=== PATIENT | female | born 1995 | race Caucasian/White ===

== ENCOUNTER 2017-09-07 19:30 | Observation (INO) | payer OTHER ==
--- NOTE | 2017-09-07 21:29 | ER Document Report ---
ED GI/ - General Chief Complaint: Abdominal Pain Stated Complaint: ABDOMINAL PAIN Time Seen by Provider: 09/07/17 21:29 Notes: The patient is a 22-year-old female, no past medical history, presents with 1 day of worsening right lower quadrant abdominal pain, nausea and vomiting. The pain is worse with movement and palpation. Her last menstrual period was 3 weeks ago and she is beginning to spot. The pain was initially intermittent, but is now constant. She denies fevers, dysuria, vaginal discharge, flank pain , hematemesis, diarrhea, constipation, rash, chest pain, shortness of breath or . TRAVEL OUTSIDE OF THE [place] IN LAST 30 DAYS: No Past Medical History - General Information source: Patient - Social History Smoking Status: Never Smoker Chew tobacco use (# tins/day): No Frequency of alcohol use: Occasional Drug Abuse: None Family History: Reviewed & Not Pertinent Patient has suicidal ideation: No Patient has homicidal ideation: No Pulmonary Medical History: Reports: Hx Bronchitis Neurological Medical History: Reports: Hx Migraine Renal/ Medical History: Denies: Hx Peritoneal Dialysis Surgical Hx: Negative Review of Systems - Review of Systems Notes: REVIEW OF SYSTEMS: CONSTITUTIONAL: -fevers, -chills EENT: -eye pain, -difficulty swallowing, -nasal congestion CARDIOVASCULAR:-chest pain, -syncope. RESPIRATORY: -cough, -SOB GASTROINTESTINAL: +RLQ abdominal pain, +nausea, +vomiting, -diarrhea GENITOURINARY: -dysuria, -hematuria MUSCULOSKELETAL: -back pain, -neck pain SKIN: -rash or skin lesions. HEMATOLOGIC: -easy bruising or bleeding. LYMPHATIC: -swollen, enlarged glands. NEUROLOGICAL: -altered mental status or loss of consciousness, -headache, - neurologic symptoms PSYCHIATRIC: -anxiety, -depression. ALL OTHER SYSTEMS REVIEWED AND NEGATIVE. Physical Exam - Vital signs Vitals: Temp Pulse Resp BP Pulse Ox 98.4 F 92 18 137/86 H 100 09/07/17 20:19 09/07/17 20:19 09/07/17 20:19 09/07/17 20:19 09/07/17 20:19 - Notes Notes: PHYSICAL EXAMINATION: GENERAL: Well-appearing, well-nourished and in no acute distress. HEAD: Atraumatic, normocephalic. EYES: Pupils equal round and reactive to light, extraocular movements intact, sclera anicteric, conjunctiva are normal. ENT: nares patent, oropharynx clear without exudates. Moist mucous membranes. NECK: Normal range of motion, supple without lymphadenopathy LUNGS: Breath sounds clear to auscultation bilaterally and equal. No wheezes rales or rhonchi. HEART: Regular rate and rhythm without murmurs ABDOMEN: Soft, moderate RLQ tenderness, normoactive bowel sounds. +guarding and rebound. No masses appreciated. EXTREMITIES: Normal range of motion, no pitting or edema. No cyanosis. NEUROLOGICAL: Cranial nerves grossly intact. Normal speech, normal gait. Normal sensory and motor exams. PSYCH: Normal mood, normal affect. SKIN: Warm, Dry, normal turgor, no rashes or lesions noted. Course - Re-evaluation Re-evalutation: 09/07/17 22:52 Pt with acute appendicitis on CAT scan. Spoke to Dr. Mccracken, surgicalist, and he recommends IV antibiotics, IV fluids and admission to surgical floor. Pt kept NPO. - Vital Signs Vital signs: Temp Pulse Resp BP Pulse Ox 98.4 F 92 18 137/86 H 100 09/07/17 20:19 09/07/17 20:19 09/07/17 20:19 09/07/17 20:19 09/07/17 20:19 - Laboratory Result Diagrams: 09/07/17 20:40 09/07/17 20:40 Laboratory results interpreted by me: 09/07/17 09/07/17 20:40 20:50 WBC 17.5 H Absolute Neutrophils 12.9 H Absolute Monocytes 2.1 H Urine Blood MODERATE H - Diagnostic Test Radiology reviewed: Image reviewed, Reports reviewed Radiology results interpreted by me: CT A/P: Findings consistent with acute appendicitis. Discharge - Discharge Clinical Impression: Acute appendicitis Qualifiers: Acute appendicitis type: with localized peritonitis Qualified Code(s): K35.3 - Acute appendicitis with localized peritonitis Condition: Stable Disposition: ADMITTED INPATIENT Admitting Provider: Hialyist Eloisa Mccracken Unit Admitted: Surgical Floor
[2017-09-07 21:30] LABS: ABSOLUTE BASOPHILS # (AUTO) 0.1 10^3/uL (0.0-0.2); ABSOLUTE EOSINOPHILS # (AUTO) 0.1 10^3/uL (0.0-0.6); ABSOLUTE LYMPHOCYTES (AUTO) 2.4 10^3/uL (0.5-4.7); ABSOLUTE MONOCYTES (AUTO) 2.1 10^3/uL (0.1-1.4); ABSOLUTE NEUT (AUTO) 12.9 10^3/uL (1.7-8.2); BASOPHILS % (AUTO) 0.4 % (0-2); EOSINOPHILS % (AUTO) 0.4 % (0-6); HEMATOCRIT 38.3 % (36.0-47.0); HEMOGLOBIN 13.3 g/dL (12.0-15.5); HGB HCT DIFFERENCE 1.6; LYMPHOCYTES % (AUTO) 13.4 % (13-45); MEAN CORPUSCULAR HEMOGLOBIN 29.6 pg (27.0-33.4); MEAN CORPUSCULAR HGB CONC 34.6 g/dL (32.0-36.0); MEAN CORPUSCULAR VOLUME 86 fl (80-97); MONOCYTES % (AUTO) 11.8 % (3-13); RED BLOOD COUNT 4.48 10^6/uL (3.72-5.28); RED CELL DISTRIBUTION WIDTH 12.8 % (11.5-14.0); WHITE BLOOD COUNT 17.5 10^3/uL (4.0-10.5)
[2017-09-07 21:33] LABS: APPEARANCE,URINE CLEAR; BILIRUBIN,URINE NEGATIVE (NEGATIVE); GLUCOSE, URINE NEGATIVE (NEGATIVE); KETONES,URINE NEGATIVE (NEGATIVE); LEUKOCYTE ESTERASE,URINE NEGATIVE (NEGATIVE); NITRITE,URINE NEGATIVE (NEGATIVE); PROTEIN,URINE NEGATIVE (NEGATIVE); UROBILINOGEN,URINE NEGATIVE mg/dL (<2.0)
[2017-09-07] MEDS ORDERED: ONDANSETRON HCL INJ/PF 4 MG/2 ML SDV IV ONE (21:35)
[2017-09-07] MEDS ORDERED: MORPHINE SULFATE 10 MG/ML INJ IV ONE ×2 (21:35→22:57)
[2017-09-07] MEDS ORDERED: NORMAL SALINE 1000 ML 1,000 ML IV ONE ×2 (21:35→22:53)
[2017-09-07 21:38] LABS: ALANINE AMINOTRANSFERASE 34 U/L (9-52); ALBUMIN 4.4 g/dL (3.5-5.0); ALKALINE PHOSPHATASE 77 U/L (38-126); ANION GAP 13 (5-19); ASPARTATE AMINO TRANSFERASE 30 U/L (14-36); BILIRUBIN,DIRECT 0.3 mg/dL (0.0-0.4); BILIRUBIN,TOTAL 0.6 mg/dL (0.2-1.3); BLOOD UREA NITROGEN 11 mg/dL (7-20); CALCIUM 9.6 mg/dL (8.4-10.2); CARBON DIOXIDE 23 mmol/L (22-30); CHLORIDE 105 mmol/L (98-107); CREATININE RESULT 0.96 mg/dL (0.52-1.25); GLUCOSE 83 mg/dL (75-110); LIPASE 86.5 U/L (23-300); POTASSIUM 4.4 mmol/L (3.6-5.0); SODIUM 141.1 mmol/L (137-145)
--- NOTE | 2017-09-07 22:34 | RADIOLOGY REPORT (SQ) ---
EXAM DESCRIPTION: CT ABD/PELVIS WITH IV ONLY COMPLETED DATE/TIME: 09/07/2017 10:10 pm REASON FOR STUDY: RLQ pain COMPARISON: None. TECHNIQUE: CT scan of the abdomen and pelvis performed using helical scanning technique with dynamic intravenous contrast injection. No oral contrast. Images reviewed with lung, soft tissue, and bone windows. Reconstructed coronal and sagittal MPR images reviewed. Delayed images for evaluation of the urinary system also acquired. All images stored on PACS. All CT scanners at this facility use dose modulation, iterative reconstruction, and/or weight based d osing when appropriate to reduce radiation dose to as low as reasonably achievable (ALARA). [facility]: Dose Right [facility]: CareDose [facility]: Dose Right [facility]: Teradose 4D [facility]: Fanwards CONTRAST TYPE AND DOSE: contrast/concentration: Isovue 370.00 mg/ml; Total Contrast Delivered: 86.0 ml; Total Saline Delivered: 44.0 ml RENAL FUNCTION: None required. The patient is less than 50 years old. RADIATION DOSE: Up-to-date CT equipment and radiation dose reduction techniques were employed. CTDIv ol: 10.1 mGy. DLP: 1135 mGy-cm.. LIMITATIONS: None. FINDINGS: LOWER CHEST: No significant findings. No nodules or infiltrates. LIVER: Normal size. No masses. No dilated ducts. SPLEEN: Normal size. No focal lesions. PANCREAS: No masses. No significant calcifications. No adjacent inflammation or peripancreatic fluid collections. Pancreatic duct not dilated. GALLBLADDER: No identified stones by CT criteria. No inflammatory changes to suggest cholecystitis. ADRENAL GLANDS: No significant masses or asymmetry. RIGHT KIDNEY AND URETER: No solid masses. No significant calcifications. No hydronephrosis or hyd roureter. LEFT KIDNEY AND URETER: No solid masses. No significant calcifications. No hydronephrosis or hydr oureter. AORTA AND VESSELS: No aneurysm. No dissection. Renal arteries, SMA, celiac without stenosis. RETROPERITONEUM: No retroperitoneal adenopathy, hemorrhage or masses. BOWEL AND PERITONEAL CAVITY: No masses or inflammatory changes. No free fluid or peritoneal masses. APPENDIX: Mildly dilated with moderate adjacent inflammatory changes in the para appendiceal fat. No free air or fluid collection. PELVIS: No mass. No free fluid. Normal bladder. ABDOMINAL WALL: No masses. No hernias. BONES: No significant or acute findings. OTHER: No other significant finding. IMPRESSION: Findings consistent with acute appendicitis. TECHNICAL DOCUMENTATION: JOB ID: [id number] Quality ID # [id number]: Final reports with documentation of one or more dose reduction techniques (e.g., Au tomated exposure control, adjustment of the mA and/or kV according to patient size, use of iterative reconstruction technique) 2010 [employer]- All Rights Reserved
[2017-09-07] MEDS ORDERED: AMPICILLIN SOD/SULBACTAM 3 GM VIAL IV ONE (22:54)
[2017-09-08] MEDS ORDERED: NORMAL SALINE 1000 ML 1,000 ML IV PRN (01:55)
[2017-09-08] MEDS ORDERED: PIPERACILLIN/TAZOBACTAM 3.375 GM VIAL IV PRN (01:56)
[2017-09-08] MEDS ORDERED: ONDANSETRON HCL INJ/PF 4 MG/2 ML SDV IV PRN (01:57)
[2017-09-08] MEDS ORDERED: PIPERACILLIN/TAZOBACTAM 3.375 GM VIAL IV ONE (04:15)
[2017-09-08] MEDS: PIPERACILLIN SODIUM/TAZOBACTAM 3.375 GM in NORMAL SALINE 100 ML IV SCH ×4 (04:28→20:33)
[2017-09-08] MEDS: MORPHINE SULFATE 10 MG/ML INJ IV PRN ×3 (04:28→23:57)
--- NOTE | 2017-09-08 07:12 | HISTORY AND PHYSICAL E ---
History and Physical NAME: RUSSEL SNOW : 1995 AGE: 22Y ADMITTED: 09/08/2017 ROOM: 209 CHIEF COMPLAINT: Abdominal pains. HISTORY OF PRESENT ILLNESS: This is a 22-year-old female who has been complaining of right lower quadrant pain started at 2:30 a.m. of 09/07/17. Pain associated with nausea. Patient went to the emergency room where a CAT scan of the abdomen revealed acute appendicitis. Patient was then admitted, started on IV antibiotics, and kept n.p.o. PAST HISTORY: Unremarkable. SOCIAL HISTORY: Denies smoking. Drinks socially. Denies recreational drug use. PAST MEDICAL HISTORY: 1. Pulmonary medical history: Bronchitis. 2. Neurologic history: Reports history of migraine. PAST SURGICAL HISTORY: No previous surgery in the past. ALLERGIES: None known. REVIEW OF SYSTEMS: CONSTITUTIONAL: Denies any fever or chills. EARS, EYES, NOSE, THROAT: No visual or hearing problems or nasal congestion. CARDIOVASCULAR: Denies chest pains. RESPIRATORY: Denies shortness of breath or cough. GASTROINTESTINAL: Admits to having right lower quadrant abdominal pains, nausea, and vomiting. No diarrhea. GENITOURINARY: No dysuria. MUSCULOSKELETAL: Denies back pains or neck pains. SKIN: No rashes or skin lesions. HEMATOLOGIC: No easy bruisability or enlarged glands. NEUROLOGIC: No altered mental status or loss of consciousness. PSYCHIATRIC: No history of depression or anxiety. All other systems reviewed are negative. PHYSICAL EXAMINATION: VITAL SIGNS: Temperature is 98.4 degrees Fahrenheit, pulse rate 92 per minute, respiratory rate 18 per minute, BP 137/86, and pulse ox of 100% on room air. GENERAL: Patient is well-developed, well-nourished 22-year-old female complaining of right lower quadrant pains. HEENT: Neck is supple. No thyromegaly. LUNGS: Clear. HEART: Regular sinus rhythm. ABDOMEN: Soft with tenderness in the right lower quadrant with rebound. EXTREMITIES: No edema. NEUROLOGIC: The patient is alert and oriented x4. Normal speech and normal gait. PSYCHIATRIC: Normal mood and affect. SKIN: Warm, dry, and no rash. LABORATORY DATA: White count is noted to be elevated at 17.5, hemoglobin is normal at 13.3. BMP is normal with normal BUN and creatinine. IMAGING: A CAT scan of the abdomen was done and reviewed and noted to have acute appendicitis. IMPRESSION: Acute appendicitis. PLAN: 1. Patient keep n.p.o. 2. Start IV antibiotics with Zosyn. 3. Hydrate with normal saline at 150 mL/hour. 4. Patient for laparoscopic appendectomy by Dr. Gordillo, the incoming surgeon. DICTATING PHYSICIAN: ARMIN SYKES M.D. [id number] PHY#: [id number] ID: [id number] JOB#: [id number] ACCT: [id number] cc:Frannie ABARCA MD
[2017-09-08] MEDS ORDERED: BUPIVACAINE HCL 0.25 % INJ/PF (2.5 MG/1 ML) 30 ML VIAL ONE (08:21)
[2017-09-08] MEDS ORDERED: FENTANYL CITRATE INJ/PF 100 MCG/2 ML AMPUL ONE (08:41)
[2017-09-08] MEDS ORDERED: MIDAZOLAM 2 MG/2 ML INJ ONE (08:41)
[2017-09-08] MEDS ORDERED: EPHEDRINE SULFATE INJ 50 MG/1 ML AMPULE ONE (08:41)
[2017-09-08] MEDS ORDERED: HYDROMORPHONE HCL INJ/PF 2 MG/ML AMPULE ONE (08:42)
[2017-09-08] MEDS ORDERED: IBUPROFEN INJ 800 MG/8 ML VIAL IV ONE (08:42)
[2017-09-08] MEDS ORDERED: PROPOFOL INJ 200 MG/20 ML VIAL IV ONE (08:42)
--- NOTE | 2017-09-08 09:09 | PDOC PROGRESS REPORT ---
Subjective Progress Note for:: 09/08/17 Subjective:: Complain of persistent right lower quadrant abdominal pain. Physical Exam Vital Signs: Temp Pulse Resp BP Pulse Ox 98.5 F 84 20 111/61 100 09/08/17 08:38 09/08/17 08:38 09/08/17 08:38 09/08/17 07:50 09/08/17 08:38 General appearance: PRESENT: no acute distress, cooperative Respiratory exam: PRESENT: clear to auscultation amanda Cardiovascular exam: PRESENT: RRR GI/Abdominal exam: PRESENT: other - Soft, nondistended, right lower quadrant abdominal tenderness with guarding. Results Impressions: Abdomen/Pelvis CT 09/07/17 21:35 IMPRESSION: Findings consistent with acute appendicitis. Assessment & Plan - Diagnosis (1) Acute appendicitis Qualifiers: Acute appendicitis type: with localized peritonitis Qualified Code(s): K35.3 - Acute appendicitis with localized peritonitis Is this a current diagnosis for this admission?: Yes Plan: Likely appendicitis. Will plan laparoscopic appendectomy possible open appendectomy. I have discussed with the patient the risk and benefits of the procedure including risk of mistaken diagnosis, infection, bleeding, adjacent structure injury, stump leak. patient understands and agrees to proceed. She understands that if the appendix appears normal I will still most likely remove the appendix and do a exploratory laparoscopy.
[2017-09-08] MEDS ORDERED: FENTANYL CITRATE INJ/PF 100 MCG/2 ML AMPUL IV PRN ×3 (09:22)
[2017-09-08] MEDS ORDERED: MEPERIDINE HCL/PF INJ 25 MG/1 ML DISP.SYRIN IV PRN (09:22)
[2017-09-08] MEDS ORDERED: PROMETHAZINE HCL INJ 25 MG/1 ML VIAL IV PRN (09:22)
[2017-09-08] MEDS ORDERED: DIPHENHYDRAMINE HCL 50 MG/ML VIAL IV PRN (09:22)
--- NOTE | 2017-09-08 10:16 | Operative Report ---
Operative Report DATE OF SURGERY: 09/08/17 PREOPERATIVE DIAGNOSIS: Appendicitis POSTOPERATIVE DIAGNOSIS: Appendicitis OPERATION: Laparoscopic appendectomy, exploratory laparoscopy. SURGEON: HECTOR JOHNSON ANESTHESIA: GA TISSUE REMOVED OR ALTERED: Appendix, appendix swabbed for Gram stain and culture COMPLICATIONS: None ESTIMATED BLOOD LOSS: Minimal INTRAOPERATIVE FINDINGS: Slightly turbid fluid around a distended appendix but no evidence of perforation. Normal-appearing small bowel, normal-appearing right colon, normal-appearing sigmoid colon, normal-appearing liver, normal- appearing gallbladder, normal-appearing bilateral ovaries, normal-appearing uterus. PROCEDURE: Informed consent was obtained. Patient was brought to the operating room placed on the operating room table in the supine position. After satisfactory induction of general anesthesia patient's abdomen was prepped and draped in usual sterile fashion. A supraumbilical midline incision was made dissection carried down through the fascia and the peritoneal cavity was entered. Davis trocar was inserted and pneumoperitoneum produced with good patient toleration. A 5 mm trocar was placed in the right lateral abdomen lateral to the rectus above the level of the umbilicus. Another 5 mm trocar was placed in the left lateral abdomen lateral to the rectus below the level of the umbilicus. Patient was placed in a Trendelenburg position with the right side up. There was slightly turbid fluid along the right paracolic gutter with a distended slightly inflamed appendix but no evidence of perforation. An exploratory laparoscopy was performed since the diagnosis appendicitis was not 100% certain although likely based on the appearance. The gallbladder and the liver appeared normal. Bilateral ovaries were visualized and they appeared normal. The uterus appeared normal. The right colon and the sigmoid colon appeared normal. No evidence of hernia was seen. The small bowel was run from the ligament of Treitz proximally and no abnormalities were noted. A plane was created between the mesoappendix and the appendix at the base of the appendix. Using a Endo JOANNE stapling device the appendix was taken flush with the cecum. The stump closure appeared secure. The mesoappendix was taken using a vascular load of the Endo JOANNE stapling device. Hemostasis appeared good. The operative field was lightly irrigated and irrigant aspirated out. The appendix was placed in an Endobag and removed through the Davis trocar site fascial defect. All trochars were removed under the direct vision of the laparoscope to ensure hemostasis. The Davis trocar site fascial defect was closed with interrupted Vicryl sutures. All skin incisions were closed with subcuticular interrupted Monocryl sutures. Marcaine was injected at the operative sites. Patient tolerated procedure well with no apparent complications and was taken to the recovery area in stable condition.
[2017-09-08] MEDS ORDERED: ACETAMINOPHEN 100 ML IV ONE (10:59)
[2017-09-08] MEDS: DEXTROSE 5%-LACTATED RINGERS 1,000 ML IV PRN ×2 (18:13→20:34)
--- NOTE | 2017-09-08 21:20 | PDOC PROGRESS REPORT ---
Subjective Progress Note for:: 09/08/17 Subjective:: Feels much better. Preoperative pain has markedly improved. Physical Exam Vital Signs: Temp Pulse Resp BP Pulse Ox 97.7 F 95 16 128/75 H 98 09/08/17 15:23 09/08/17 15:23 09/08/17 15:23 09/08/17 15:23 09/08/17 15:23 Intake & Output 09/07/17 09/08/17 09/09/17 06:59 06:59 06:59 Intake Total 0 Output Total 1020 Balance 1030 General appearance: PRESENT: no acute distress, cooperative Respiratory exam: PRESENT: clear to auscultation amanda Cardiovascular exam: PRESENT: RRR GI/Abdominal exam: PRESENT: other - Soft, nondistended, right lower quadrant abdominal tenderness has resolved. Results Impressions: Abdomen/Pelvis CT 09/07/17 21:35 IMPRESSION: Findings consistent with acute appendicitis. Assessment & Plan - Diagnosis (1) Acute appendicitis Qualifiers: Acute appendicitis type: with localized peritonitis Qualified Code(s): K35.3 - Acute appendicitis with localized peritonitis Is this a current diagnosis for this admission?: Yes Plan: Status post laparoscopic appendectomy. Patient doing very well. Will likely discharge patient home tomorrow.
[2017-09-09] MEDS: PIPERACILLIN SODIUM/TAZOBACTAM 3.375 GM in NORMAL SALINE 100 ML IV SCH ×2 (02:58→09:03)
[2017-09-09] MEDS ORDERED: ONDANSETRON HCL INJ/PF 4 MG/2 ML SDV ONE (07:48)
[2017-09-09] MEDS ORDERED: DEXAMETHASONE SOD PHOSPHATE INJ 4 MG/1 ML VIAL ONE (07:48)
[2017-09-09] MEDS ORDERED: NEOSTIGMINE METHYLSULFATE 10 MG/10 ML VIAL ONE (07:48)
[2017-09-09] MEDS ORDERED: GLYCOPYRROLATE INJ 0.4 MG/2 ML VIAL ONE (07:48)
[2017-09-09] MEDS ORDERED: LIDOCAINE 2% INJ-PF (20 MG/ML) 10 ML AMPUL ONE (07:48)
--- NOTE | 2017-09-09 09:43 | PDOC DISCHARGE SUMMARY ---
Discharge Summary (SDC) - Discharge Final Diagnosis: Acute appendicitis Date of Surgery: 09/08/17 Discharge Date: 09/09/17 Condition: Good Treatment or Instructions: Activity and follow up instructions given. Referrals: HECTOR JOHNSON MD [ACTIVE STAFF] - Discharge Diet: Regular Respiratory Treatments at Home: Deep Breathing/Coughing
[2017-09-09 10:14] VITALS: BP 132/80
== END 2017-09-09 10:37 | disposition home or self-care (01) ==
LOC: ER 19:30 → EH 23:38 → UNDOADMIN 23:38 → EH 09-08 00:28 → UNDOADMIN 09-08 00:28 → INTOOBSV 09-08 00:35 → EH 09-08 00:35 → UNDOADMOB 09-08 00:35 → 2N 09-08 01:30 → EH 09-08 01:30 → 2N 09-08 04:53
PROVIDERS: ATTEND Surgery
PROC: 0DTJ4ZZ Resection of Appendix, Percutaneous Endoscopic Approach (ICD-10-PCS; principal; 2017-09-08 09:00)
DX: K35.3 Acute appendicitis with localized peritonitis (principal)
CPT/HCPCS: 99285; 96361; 96375; 96365; 36415; 87070; 87205; 83690; 85025; 81025; 87075; 80053; 81001; 88304 ×2; 74177; 44970; J2250; J1100; J3010; J0295; J2270 ×2; J1170; J2405 ×2; J7030 ×2; J2704; J3490; J2543 ×2; J0131; J1741; 840

== ENCOUNTER 2019-02-17 20:44 | Emergency (ER) | payer OTHER ==
[2019-02-17 20:51] VITALS: BP 148/91
[2019-02-17 21:48] LABS: ABSOLUTE LYMPHOCYTES (AUTO) 1.8 10^3/uL (0.5-4.7); ABSOLUTE MONOCYTES (AUTO) 0.8 10^3/uL (0.1-1.4); ABSOLUTE NEUT (AUTO) 5.7 10^3/uL (1.7-8.2); BASOPHILS % (AUTO) 0.1 % (0-2); EOSINOPHILS % (AUTO) 0.6 % (0-6); HEMATOCRIT 40.1 % (36.0-47.0); HEMOGLOBIN 13.5 g/dL (12.0-15.5); LYMPHOCYTES % (AUTO) 22.1 % (13-45); MEAN CORPUSCULAR HEMOGLOBIN 28.7 pg (27.0-33.4); MEAN CORPUSCULAR HGB CONC 33.7 g/dL (32.0-36.0); MEAN CORPUSCULAR VOLUME 85 fl (80-97); MONOCYTES % (AUTO) 9.5 % (3-13); PLATELET COUNT 375 10^3/uL (150-450); RED BLOOD COUNT 4.72 10^6/uL (3.72-5.28); RED CELL DISTRIBUTION WIDTH 13.6 % (11.5-14.0); SEGMENTED NEUTROPHILS % (AUTO) 67.7 % (42-78); TOTAL CELLS COUNTED % (AUTO) 100 %; WHITE BLOOD COUNT 8.4 10^3/uL (4.0-10.5)
[2019-02-17 21:59] LABS: APPEARANCE,URINE CLOUDY; BILIRUBIN,URINE SMALL (NEGATIVE); COLOR,URINE AMBER; GLUCOSE, URINE NEGATIVE (NEGATIVE); KETONES,URINE 80 mg/dL (NEGATIVE); LEUKOCYTE ESTERASE,URINE MODERATE (NEGATIVE); NITRITE,URINE NEGATIVE (NEGATIVE); PROTEIN,URINE 30 mg/dL (NEGATIVE); URINE SPECIFIC GRAVITY 1.035
[2019-02-17 22:06] LABS: ALANINE AMINOTRANSFERASE 36 U/L (9-52); ALBUMIN 3.8 g/dL (3.5-5.0); ALKALINE PHOSPHATASE 70 U/L (38-126); ANION GAP 12 (5-19); ASPARTATE AMINO TRANSFERASE 33 U/L (14-36); BILIRUBIN,DIRECT 0.3 mg/dL (0.0-0.4); BILIRUBIN,TOTAL 0.4 mg/dL (0.2-1.3); BLOOD UREA NITROGEN 12 mg/dL (7-20); CALCIUM 9.3 mg/dL (8.4-10.2); CARBON DIOXIDE 25 mmol/L (22-30); CHLORIDE 104 mmol/L (98-107); GLUCOSE 90 mg/dL (75-110); LIPASE 62.5 U/L (23-300); SODIUM 140.5 mmol/L (137-145); TOTAL PROTEIN 7.4 g/dL (6.3-8.2)
[2019-02-17] MEDS ORDERED: HYOSCYAMINE SULFATE 0.125 MG TABLET PO ONE (23:34)
--- NOTE | 2019-02-17 23:38 | ER Document Report ---
ED General - General Chief Complaint: Abdominal Pain Stated Complaint: ABDOMINAL PAIN Time Seen by Provider: 02/17/19 23:11 Notes: Patient is a 23-year-old female without chronic medical problems, has a surgical history of an appendectomy, presents with 48 hours of intermittent generalized abdominal pain. Patient had nausea and vomiting yesterday which has since resolved. The patient describes the pain as a mild to moderate cramping, inte rmittent, generalized pain. Nothing seems to improve or worsen the pain. It does come in waves. She has not had a bowel movement in 2 days but does report ongoing flatus. States she was vomiting yesterday but has been able to tolerate oral intake today without difficulty. Has not had recorded fevers. Denies any dysuria, vaginal bleeding or vaginal discharge. She denies a history of similar symptoms in the past. She has not seen her primary care physician regarding today's concerns. TRAVEL OUTSIDE OF THE [place] IN LAST 30 DAYS: No - Related Data Allergies/Adverse Reactions: No Known Drug Allergies Allergy (Verified 02/17/19 20:49) Past Medical History - General Information source: Patient - Social History Smoking Status: Never Smoker Frequency of alcohol use: None Drug Abuse: None Lives with: Spouse/Significant other Family History: Reviewed & Not Pertinent Pulmonary Medical History: Reports: Hx Bronchitis Neurological Medical History: Reports: Hx Migraine Renal/ Medical History: Denies: Hx Peritoneal Dialysis Review of Systems - Review of Systems Notes: Constitutional: Negative for fever. HENT: Negative for sore throat. Eyes: Negative for visual changes. Cardiovascular: Negative for chest pain. Respiratory: Negative for shortness of breath. Gastrointestinal: Positive for abdominal pain and vomiting Genitourinary: Negative for dysuria. Musculoskeletal: Negative for back pain. Skin: Negative for rash. Neurological: Negative for headaches, weakness or numbness. 10 point ROS negative except as marked above and in HPI. Physical Exam - Vital signs Vitals: Temp Pulse Resp BP Pulse Ox 98.2 F 92 18 148/91 H 99 02/17/19 20:47 02/17/19 20:47 02/17/19 20:47 02/17/19 20:47 02/17/19 20:47 Interpretation: Hypertensive Notes: PHYSICAL EXAMINATION: GENERAL: Well-appearing, well-nourished and in no acute distress. HEAD: Atraumatic, normocephalic. EYES: Pupils equal round and reactive to light, extraocular movements intact, sclera anicteric, conjunctiva are normal. ENT: nares patent, oropharynx clear without exudates. Moist mucous membranes. NECK: Normal range of motion, supple without lymphadenopathy LUNGS: Breath sounds clear to auscultation bilaterally and equal. No wheezes rales or rhonchi. HEART: Regular rate and rhythm without murmurs ABDOMEN: Soft, nontender, normoactive bowel sounds. No guarding, no rebound. No masses appreciated. EXTREMITIES: Normal range of motion, no pitting or edema. No cyanosis. NEUROLOGICAL: No focal neurological deficits. Moves all extremities spontaneo usly and on command. PSYCH: Normal mood, normal affect. SKIN: Warm, Dry, normal turgor, no rashes or lesions noted. Course - Re-evaluation Re-evalutation: 02/17/19 23:32 Patient presents with 48 hours of generalized intermittent abdominal cramping no pain at time of my assessment. She has had vomiting yesterday although none t arely. On abdominal exam there is no focal tenderness, rebound or guarding. Very reassuring exam. Vitals are within normal limits without tachycardia, fever, or hypotension. Patient is status post appendectomy. She has been able to tolerate oral intake without difficulty and is passing flatus. Biliary pathology seems improbable given the absence of food intake having any impact on her food and absence of any upper abdominal discomfort. Labs are broadly unremarkable. Urine specimen is contaminated extensively, not diagnostically useful. Patient denies dysuria and I do not clinically suspect urinary tract infection. She has no lower abdominal discomfort, vaginal bleeding or vaginal discharge to indicate a pelvic source of her abdominal pain. Patient overall picture is undifferentiated but does not appear to be from an immediate life- threatening etiology at this point. I have had a risks and benefits conversation with the patient regarding CT imaging of the abdomen and pelvis at this time. We discussed, based on today's exam and labs there is a possibility that they could have a diagnosis that could be better clarified by CT and that this could possibly changer fixer. We discussed the risks of radiation to the abdomen and pelvis. We discussed the alternative of close follow-up with their primary care physician for a recheck of the abdomen within 24 hours as well as reasons to return to the emergency department. After this conversation, the patient has elected to avoid CT imaging of the abdomen and pelvis at this time. They have capacity. They have verbalized the importance of close follow-up as well as reasons to return to the emergency department including worsening abdominal pain, fever, persistent vomiting, or any other symptoms that are worrisome to them. - Vital Signs Vital signs: Temp Pulse Resp BP Pulse Ox 98.2 F 92 18 148/91 H 99 02/17/19 20:47 02/17/19 20:47 02/17/19 20:47 02/17/19 20:47 02/17/19 20:47 - Laboratory Result Diagrams: 02/17/19 21:24 02/17/19 21:24 Laboratory results interpreted by me: 02/17/19 21:24 Urine Protein 30 H Urine Ketones 80 H Urine Blood SMALL H Urine Bilirubin SMALL H Urine Urobilinogen 4.0 H Ur Leukocyte Esterase MODERATE H Urine Ascorbic Acid 20 H Discharge - Discharge Clinical Impression: Abdominal cramping Abdominal pain Qualifiers: Abdominal location: generalized Qualified Code(s): R10.84 - Generalized abdominal pain Nausea and vomiting Qualifiers: Vomiting type: unspecified Vomiting Intractability: non-intractable Qualified Code(s): R11.2 - Nausea with vomiting, unspecified Condition: Good Disposition: HOME, SELF-CARE Additional Instructions: You have been seen in the Emergency Department (ED) for abdominal pain. Your evaluation did not identify a clear cause of your symptoms but was generally reassuring. Please follow up with your doctor as soon as possible regarding today's emergent visit and the symptoms that are bothering you. Ideally I would prefer that you follow-up within 24 hours for recheck of your abdomen. Return to the ED if your abdominal pain worsens or fails to improve, you develop bloody vomiting, bloody diarrhea, you are unable to tolerate fluids due to vomiting, fever greater than 101, or other symptoms that concern you. Prescriptions: Hyoscyamine Sulfate [Levsin 0.125 Tablet] 0.125 mg PO TID PRN #30 tablet PRN Reason:
[2019-02-17] MEDS ORDERED: HYOSCYAMINE SULFATE 0.125 MG TABLET ONE (23:57)
== END 2019-02-18 00:20 | disposition home or self-care (01) ==
LOC: ER 20:44
DX: R10.84 Generalized abdominal pain (principal); R11.2 Nausea with vomiting, unspecified
CPT/HCPCS: 99284; 36415; 83690; 85025; 81025; 80053; 81001; J3490